=== PATIENT | male | born 1935 | race Two or more races ===

== ENCOUNTER 2019-01-09 18:32 | Emergency (ER) | payer MEDICARE, OTHER ==
[~2019-01-09] VITALS: Ht 177.8 cm; Wt 74.0 kg
[2019-01-10 02:30] VITALS: BP 152/74
== END 2019-01-10 02:48 | disposition home or self-care (01) ==
LOC: ER 18:32
DX: C61 Malignant neoplasm of prostate (principal); R33.9 Retention of urine, unspecified; N40.0 Benign prostatic hyperplasia without lower urinary tract symptoms; Z93.6 Other artificial openings of urinary tract status
CPT/HCPCS: 99283; A4315